=== PATIENT | female | born 1985 | race Caucasian/White ===

== ENCOUNTER 2017-09-17 13:46 | Emergency (ER) | payer SELFPAY ==
--- NOTE | 2017-09-17 16:37 | ER ---
Nurse's Notes [facility] Name: Melissa Hughes Age: 32 yrs Sex: Female : 1985 Arrival Date: 09/17/2017 Time: 13:50 Bed 12 Private MD: None, None Diagnosis: Low back pain;Strain of muscle, fascia and tendon of lower back;Unspecified lump in breast-right Presentation: 09/17 14:31 Presenting complaint: Patient states: i felt 2 knots on my R breast and it hurts and hj now my back hurts;. Transition of care: patient was not received from another setting of care. Onset of symptoms was September 17, 2017. Care prior to arrival: None. 14:31 Method Of Arrival: Ambulatory 14:31 Acuity: ABELARDO 4 hj Triage Assessment: 14:33 General: Appears in no apparent distress. uncomfortable, Behavior is calm, cooperative, hj appropriate for age. Pain: Complains of pain in right breast Pain radiates to back. Musculoskeletal: Circulation, motion, and sensation intact. Capillary refill. COMPLIANCE SPECIALIST: 14:33 LMP 09/06/2017 Historical: - Allergies: 14:33 No Known Drug Allergies; hj - Home Meds: 14:33 None [Active]; hj - PMHx: 14:33 None; hj - PSHx: 14:33 Tubal ligation; hj - Immunization history:: Pneumococcal vaccine is not up to date, Flu vaccine is not up to date. - Social history:: Smoking status: Patient uses tobacco products, smokes one-half pack cigarettes per day. Screenin:16 Abuse screen: Denies threats or abuse. Nutritional screening: No deficits noted. kb1 Tuberculosis screening: No symptoms or risk factors identified. Fall Risk None identified. Assessment: 15:16 Reassessment: Reports right flank pain that started last night. States its tender to kb1 touch. Also complains of right breast "lumps" that are painful. General: Appears in no apparent distress. Behavior is calm, cooperative. Pain: Complains of pain in right lower back side, right breast. Neuro: Level of Consciousness is awake, alert, obeys commands, Oriented to person, place, time, situation. Cardiovascular: Patient's skin is warm and dry. Respiratory: Airway is patent. GI: No signs and/or symptoms were reported involving the gastrointestinal system. : No signs and/or symptoms were reported regarding the genitourinary system. Vital Signs: 14:33 BP 119 / 72; Pulse 85; Resp 18; Temp 97.6(TE); Pulse Ox 100% on R/A; Weight 83.91 kg; hj Height 5 ft. 11 in. (180.34 cm); Pain 8/10; 14:33 Body Mass Index 25.80 (83.91 kg, 180.34 cm) ED Course: 13:50 Patient arrived in ED. mr 13:51 None, None is Private Physician. mr 14:32 Triage completed. hj 14:33 Arm band placed on right wrist. hj 15:16 Skyla Gong, RN is Primary Nurse. kb1 15:16 Patient has correct armband on for positive identification. kb1 15:16 No provider procedures requiring assistance completed. Patient did not have IV access kb1 during this emergency room visit. 15:27 Kwesi Daiz NP is PHCP. pm1 15:27 Darryn Zacarias MD is Attending Physician. pm1 Administered Medications: No medications were administered Outcome: 16:37 Discharge ordered by MD. pm1 17:15 Discharged to home ambulatory. kb1 17:15 Condition: good 17:15 Discharge instructions given to patient, Instructed on discharge instructions, follow up and referral plans. medication usage, Demonstrated understanding of instructions, follow-up care, medications. 17:15 Patient left the ED. kb1 Signatures: Savanna Kc mr BenavidesBandar RN RN Kwesi Diaz, PRISCILA DETECTIVE SUPERVISOR pm1 Skyla Gong, MICHEL RN kb1 Corrections: (The following items were deleted from the chart) 14:35 14:33 Pulse 85bpm; Resp 18bpm; Pulse Ox 100% RA; Temp 97.6F Temporal; 83.91 kg; Height hj 5 ft. 11 in.; BMI: 25.8; Pain 8/10; hj
--- NOTE | 2017-09-17 16:37 | EDPHYS ---
Physician Documentation [facility] Name: Melissa Hughes Age: 32 yrs Sex: Female : 1985 Arrival Date: 09/17/2017 Time: 13:50 Bed 12 Private MD: None, None ED Physician Darryn Zacarias HPI: 09/17 16:08 This 32 yrs old Female presents to ER via Ambulatory with complaints of Back pm1 Pain, Breast Lump. 16:08 The patient has not experienced similar symptoms in the past. The patient has not pm1 recently seen a physician, and does not have an established primary care provider. Patient presents to the ER with complaints of right breast lumps that she noticed yesterday. Patient reports feeling them at 5 and 10 o'clock. Lump at 10 o'clock painful per patient. Patient also reports that her right lower back started hurting yesterday. Patient reports history of kidney stones but thinks that she might have strained it with sleeping wrong on it last night. No nausea, vomiting, or diarrhea. No abdominal pain. No fevers. REHABILITATION COORDINATOR: 14:33 LMP 09/06/2017 hj Historical: - Allergies: 14:33 No Known Drug Allergies; hj - Home Meds: 14:33 None [Active]; hj - PMHx: 14:33 None; hj - PSHx: 14:33 Tubal ligation; hj - Immunization history:: Pneumococcal vaccine is not up to date, Flu vaccine is not up to date. - Social history:: Smoking status: Patient uses tobacco products, smokes one-half pack cigarettes per day. ROS: 16:08 Constitutional: Negative for fever, chills, and weight loss, Eyes: Negative for injury, pm1 pain, redness, and discharge, ENT: Negative for injury, pain, and discharge, Neck: Negative for injury, pain, and swelling, Cardiovascular: Negative for chest pain, palpitations, and edema. Right breast lumps Respiratory: Negative for shortness of breath, cough, wheezing, and pleuritic chest pain, Abdomen/GI: Negative for abdominal pain, nausea, vomiting, diarrhea, and constipation. 16:08 : Negative for injury, bleeding, discharge, and swelling, MS/Extremity: Negative for injury and deformity, Skin: Negative for injury, rash, and discoloration. 16:08 Back: Positive for pain with movement, flank pain, on the right, Negative for decreased range of motion, radiated pain. Exam: 16:08 Constitutional: This is a well developed, well nourished patient who is awake, alert, pm1 and in no acute distress. Head/Face: Normocephalic, atraumatic. Eyes: Pupils equal round and reactive to light, extra-ocular motions intact. Lids and lashes normal. Conjunctiva and sclera are non-icteric and not injected. Cornea within normal limits. Periorbital areas with no swelling, redness, or edema. 16:08 Cardiovascular: Regular rate and rhythm with a normal S1 and S2. No gallops, murmurs, or rubs. No pulse deficits. Respiratory: Lungs have equal breath sounds bilaterally, clear to auscultation and percussion. No rales, rhonchi or wheezes noted. No increased work of breathing, no retractions or nasal flaring. Abdomen/GI: Soft, non-tender, with normal bowel sounds. No distension or tympany. No guarding or rebound. No evidence of tenderness throughout. 16:08 Skin: Warm, dry with normal turgor. Normal color with no rashes, no lesions, and no evidence of cellulitis. MS/ Extremity: Pulses equal, no cyanosis. Neurovascular intact. Full, normal range of motion. 16:08 Chest/axilla: Inspection: normal, Palpation: is normal, Breasts: abscess, not appreciated, cellulitis, is not appreciated, mass(es), that is small, in the right breast, that is freely movable, at 5 o'clock and central, nipple discharge, is not appreciated, rash, is not appreciated, swelling, is not appreciated, tenderness, is not appreciated. 16:08 Back: ROM is normal, normal spinal alignment noted, muscle spasm, is appreciated in the right low back. 16:08 Neuro: Orientation: is normal, Mentation: is normal, Motor: is normal, moves all fours, Sensation: is normal, no obvious gross deficits, Gait: is steady, at a normal pace, without difficulty. 16:08 Chest/axilla: Guest Services Associate: Skyla PEARSON. pm1 Vital Signs: 14:33 BP 119 / 72; Pulse 85; Resp 18; Temp 97.6(TE); Pulse Ox 100% on R/A; Weight 83.91 kg; hj Height 5 ft. 11 in. (180.34 cm); Pain 8/10; 14:33 Body Mass Index 25.80 (83.91 kg, 180.34 cm) [facility]: 15:27 Patient medically screened. [facility] 16:34 Data reviewed: vital signs. Data interpreted: Pulse oximetry: on room air is 100 %. pm1 Interpretation: normal. Counseling: I had a detailed discussion with the patient and/or guardian regarding: the historical points, exam findings, and any diagnostic results supporting the discharge/admit diagnosis, the need for outpatient follow up, a family practitioner, an OB/Gyne specialist, mammogram - further evaluation of her breasts, to return to the emergency department if symptoms worsen or persist or if there are any questions or concerns that arise at home. 16:35 ED course: No blood in urine present. No need for CT scan to evaluate for stone. pm1 Informed patient of finding and decision and patient happy with plan to discharge home with pain medications. 09/17 17:00 Order name: Urine Dipstick--Ancillary (enter results) 09/17 17:00 Order name: Urine --Ancillary (enter results) ag 09/17 16:02 Order name: Urine Dipstick-Ancillary (obtain specimen); Complete Time: 17:01 pm1 09/17 16:02 Order name: Urine Test (obtain specimen); Complete Time: 17:01 pm1 Administered Medications: No medications were administered Disposition: 09/18 06:52 Co-signature as Attending Physician, Darryn Zacarias MD I agree with the assessment and [facility] plan of care. Disposition: 09/17/17 16:37 Discharged to Home. Impression: Low back pain, Strain of muscle, fascia and tendon of lower back, Unspecified lump in breast - right. - Condition is Stable. - Discharge Instructions: Back Pain, Adult, Breast Self-Awareness, Muscle Strain. - Prescriptions for Cyclobenzaprine 10 mg Oral Tablet - take 1 tablet by ORAL route every 8 hours As needed; 30 tablet. Naprosyn 500 mg Oral Tablet - take 1 tablet by ORAL route 2 times per day take with food; 30 tablet. - Medication Reconciliation Form, Thank You Letter, Antibiotic Education, Prescription Opioid Use form. - Follow up: Emergency Department; When: As needed; Reason: Worsening of condition. Follow up: Private Physician; When: 2 - 3 days; Reason: Recheck today's complaints, Continuance of care, Re-evaluation by your physician. - Problem is new. - Symptoms have improved. Signatures: Dispatcher [employer] Darryn Shaw MD MD cha Joaquin, Henry, RN RN hj Kwesi Diaz, HOTEL OR MOTEL ROOM SERVICE SUPERVISOR HOTEL OR MOTEL ROOM SERVICE SUPERVISOR pm1 Skyla Gong RN RN kb1
[2017-09-17 18:00] LABS: Urine Blood NEGATIVE (NEG); Urine Glucose NEGATIVE (NEG); Urine Protein NEGATIVE (NEG); Urine Specific Gravity 1.015 (1.005-1.030); Urine pH 7.5 (5.0-7.0)
== END 2017-09-17 17:15 | disposition home or self-care (01) ==
LOC: ER 13:46
DX: S39.012A Strain of muscle, fascia and tendon of lower back, initial encounter (principal); N63.0 Unspecified lump in unspecified breast; F17.210 Nicotine dependence, cigarettes, uncomplicated
CPT/HCPCS: 81003; 81025; 99281

== ENCOUNTER 2017-09-29 | Emergency (ER) | payer SELFPAY ==
--- NOTE | 2017-09-29 10:52 | EDPHYS ---
Physician Documentation [facility] Name: Melissa Hughes Age: 32 yrs Sex: Female : 1985 Arrival Date: 09/29/2017 Time: 09:00 Bed 20 Private MD: ED Physician Vinay Krishnan HPI: 09/29 10:04 This 32 yrs old Female presents to ER via Ambulatory with complaints of Leg kav Pain - Rash. 10:44 The patient presents with a rash, raised, central black area. The complaints affect the.kav 10:45 The complaints affect the right femoral area, right inguinal area and right hip. kav Context: The problem was sustained at home, resulted from an unknown cause, the patient can fully bear weight, the patient is able to ambulate, without difficulty. Onset: The symptoms/episode began/occurred acutely, 5 day(s) ago. Modifying factors: The symptoms are alleviated by nothing. the symptoms are aggravated by scratching. 10:46 The patient's rash thought to be caused by an unknown cause. The rash is located on the kav right femoral area, right inguinal area and right hip. The rash can be described as erythematous, vesicular. Associated signs and symptoms: Pertinent positives: itching, Pertinent negatives: burning sensation. Severity of symptoms: At their worst the symptoms were mild just prior to arrival, in the emergency department the symptoms are unchanged. Treatment given at home: Benadryl, OTC lotion/cream steroid lotion/cream. The patient has not experienced similar symptoms in the past. The patient has not recently seen a physician. CDC ASSOCIATE: 10:57 LMP N/A - control method hj Historical: - Allergies: 09:29 No Known Allergies; ss - Home Meds: 09:29 naproxen [Active]; Flexeril Oral [Active]; ss - PMHx: 09:29 None; ss - PSHx: 09:29 Tubal ligation; ss - Immunization history:: Adult Immunizations up to date. - Social history:: Smoking status: Patient uses tobacco products, smokes one-half pack cigarettes per day. - Family history:: not pertinent, not pertinent. - Hospitalizations: : No recent hospitalization is reported. - History obtained from: significant other. ROS: 10:47 Constitutional: Negative for fever, chills, and weight loss, Eyes: Negative for injury, kav pain, redness, and discharge, ENT: Negative for injury, pain, and discharge, Neck: Negative for injury, pain, and swelling, Cardiovascular: Negative for chest pain, palpitations, and edema, Respiratory: Negative for shortness of breath, cough, wheezing, and pleuritic chest pain, Abdomen/GI: Negative for abdominal pain, nausea, vomiting, diarrhea, and constipation, Back: Negative for injury and pain, : Negative for injury, bleeding, discharge, and swelling, MS/Extremity: Negative for injury and deformity, Neuro: Negative for headache, weakness, numbness, tingling, and seizure, Psych: Negative for depression, anxiety, suicide ideation, homicidal ideation, and hallucinations, Allergy/Immunology: Negative for hives, rash, and allergies, Endocrine: Negative for neck swelling, polydipsia, polyuria, polyphagia, and marked weight changes, Hematologic/Lymphatic: Negative for swollen nodes, abnormal bleeding, and unusual bruising. 10:47 Skin: Positive for erythema, rash. Exam: 10:47 Constitutional: This is a well developed, well nourished patient who is awake, alert, kav and in no acute distress. Head/Face: Normocephalic, atraumatic. Eyes: Pupils equal round and reactive to light, extra-ocular motions intact. Lids and lashes normal. Conjunctiva and sclera are non-icteric and not injected. Cornea within normal limits. Periorbital areas with no swelling, redness, or edema. ENT: Nares patent. No nasal discharge, no septal abnormalities noted. Tympanic membranes are normal and external auditory canals are clear. Oropharynx with no redness, swelling, or masses, exudates, or evidence of obstruction, uvula midline. Mucous membranes moist. Neck: Trachea midline, no thyromegaly or masses palpated, and no cervical lymphadenopathy. Supple, full range of motion without nuchal rigidity, or vertebral point tenderness. No Meningismus. Chest/axilla: Normal chest wall appearance and motion. Nontender with no deformity. No lesions are appreciated. Cardiovascular: Regular rate and rhythm with a normal S1 and S2. No gallops, murmurs, or rubs. Normal PMI, no JVD. No pulse deficits. Respiratory: Lungs have equal breath sounds bilaterally, clear to auscultation and percussion. No rales, rhonchi or wheezes noted. No increased work of breathing, no retractions or nasal flaring. Abdomen/GI: Soft, non-tender, with normal bowel sounds. No distension or tympany. No guarding or rebound. No evidence of tenderness throughout. Back: No spinal tenderness. No costovertebral tenderness. Full range of motion. Pelvic Exam: Normal external genitalia. Speculum exam with closed cervical os, no discharge or bleeding noted. Bimanual exam with normal adnexa, no adnexal or cervical motion tenderness. Normal uterus. MS/ Extremity: Pulses equal, no cyanosis. Neurovascular intact. Full, normal range of motion. Neuro: Awake and alert, GCS 15, oriented to person, place, time, and situation. Cranial nerves II-XII grossly intact. Motor strength 5/5 in all extremities. Sensory grossly intact. Cerebellar exam normal. Normal gait. Psych: Awake, alert, with orientation to person, place and time. Behavior, mood, and affect are within normal limits. 10:47 Skin: lesion(s), located on the right femoral area, right inguinal area and right hip, rash a mild rash is noted, rash can be described as erythematous, vesicular. Vital Signs: 09:29 BP 134 / 75; Pulse 89; Resp 16; Temp 97.7(TE); Pulse Ox 99% on R/A; Weight 129.27 kg; ss Height 5 ft. 11 in. (180.34 cm); Pain 10/10; 09:29 Body Mass Index 39.75 (129.27 kg, 180.34 cm) MDM: 10:04 Patient medically screened. ka 10:47 Data reviewed: vital signs, nurses notes. kav Administered Medications: No medications were administered Disposition: 18:38 Co-signature as Attending Physician, Vinay Krishnan MD. rn Disposition: 09/29/17 10:51 Discharged to Home. Impression: Rash and other nonspecific skin eruption, Zoster without complications. - Condition is Stable. - Discharge Instructions: Rash, Shingles. - Prescriptions for Ultracet 37.5- 325 mg Oral Tablet - take 1 tablet by ORAL route every 6 hours - for up to 5 days; do not exceed 8 tablets per day.; 15 tablet. Acyclovir 800 mg Oral Tablet - take 1 tablet by ORAL route 4 times per day for 5 days; 20 tablet. - Medication Reconciliation Form, Thank You Letter, Antibiotic Education, Prescription Opioid Use form. - Follow up: Private Physician; When: 5 - 6 days; Reason: If symptoms return, Recheck today's complaints, Continuance of care, Re-evaluation by your physician. - Problem is new. - Symptoms are unchanged. Signatures: Lupis Hollins, Vinay Hernandez MD MD rn [facility] salgado RN RN
--- NOTE | 2017-09-29 10:52 | ER ---
Nurse's Notes [facility] Name: Melissa Hughes Age: 32 yrs Sex: Female : 1985 Arrival Date: 09/29/2017 Time: 09:00 Bed 20 Private MD: Diagnosis: Rash and other nonspecific skin eruption;Zoster without complications Presentation: 09/29 09:27 Presenting complaint: Patient states: rash to R thigh that began a week ago. Transition ss of care: patient was not received from another setting of care. Onset of symptoms was September 22, 2017. Care prior to arrival: None. 09:27 Method Of Arrival: Ambulatory ss 09:27 Acuity: ABELARDO 5 ss Triage Assessment: 10:05 General: Appears in no apparent distress. uncomfortable, Behavior is calm, cooperative, hj appropriate for age. Pain: Complains of pain in right quadriceps. EENT: No signs and/or symptoms were reported regarding the EENT system. Neuro: Level of Consciousness is awake, alert, obeys commands, Oriented to person, place, time, situation, Appropriate for age. Cardiovascular: Capillary refill < 3 seconds Patient's skin is warm and dry. Respiratory: Airway is patent Trachea midline Respiratory effort is even, unlabored, Respiratory pattern is regular, symmetrical. GI: No signs and/or symptoms were reported involving the gastrointestinal system. : No signs and/or symptoms were reported regarding the genitourinary system. Derm: Reports pain rash on R thigh. Musculoskeletal: Reports pain in right quadriceps. PACK PRESS OPERATOR: 10:57 LMP N/A - control method hj Historical: - Allergies: 09:29 No Known Allergies; ss - Home Meds: 09: naproxen [Active]; Flexeril Oral [Active]; ss - PMHx: : None; ss - PSHx: 09:29 Tubal ligation; ss - Immunization history:: Adult Immunizations up to date. - Social history:: Smoking status: Patient uses tobacco products, smokes one-half pack cigarettes per day. - Family history:: not pertinent, not pertinent. - Hospitalizations: : No recent hospitalization is reported. - History obtained from: significant other. Screenin:04 Abuse screen: Denies threats or abuse. Denies injuries from another. Nutritional hj screening: No deficits noted. Tuberculosis screening: No symptoms or risk factors identified. Fall Risk None identified. Assessment: 10:16 Reassessment: see triage for assessment;. hj Vital Signs: 09:29 BP 134 / 75; Pulse 89; Resp 16; Temp 97.7(TE); Pulse Ox 99% on R/A; Weight 129.27 kg; Height 5 ft. 11 in. (180.34 cm); Pain 10/10; 09:29 Body Mass Index 39.75 (129.27 kg, 180.34 cm) ED Course: 09:00 Patient arrived in ED. as 09:28 Triage completed. 09:29 Arm band placed on right wrist. 10:04 Bandar Benavides, RN is Primary Nurse. 10:04 Lupis Hollins FNP is PHCP. kav 10:06 Patient has correct armband on for positive identification. Bed in low position. Call hj light in reach. Side rails up X 1. Adult w/ patient. 10:51 Vinay Krishnan MD is Attending Physician. kav 10:56 No provider procedures requiring assistance completed. Patient did not have IV access hj during this emergency room visit. Administered Medications: No medications were administered Outcome: 10:51 Discharge ordered by . kav 10:56 Discharged to home ambulatory, with family. hj 10:56 Condition: stable 10:56 Discharge instructions given to patient, family, Instructed on discharge instructions, follow up and referral plans. medication usage, Demonstrated understanding of instructions, follow-up care, medications, Prescriptions given X 3. 10:58 Patient left the ED. Signatures: Lupis Hollins FNP FNP kav Martinez, Amelia as Smirch, Shelby, RN RN Bandar Benavides, MICHEL PEARSON
== END 2017-09-29 10:58 | disposition home or self-care (01) ==
CPT/HCPCS: 99282

== ENCOUNTER 2019-04-19 11:44 | Emergency (ER) | payer SELFPAY ==
[2019-04-19] MEDS ORDERED: MORPHINE 4 MG/ML SYR ONE (12:06)
[2019-04-19] MEDS ORDERED: ONDANSETRON 4 MG/2 ML VIAL ONE (12:06)
--- NOTE | 2019-04-19 13:14 | ER ---
Nurse's Notes [facility] Name: Melissa Hughes Age: 33 yrs Sex: Female : 1985 Arrival Date: 04/19/2019 Time: 11:44 Bed 5 Private MD: None, None Diagnosis: Displaced fracture of right distal radius;Displaced fracture of right distal ulna Presentation: 04/19 11:47 Presenting complaint: Patient states: tripped and fell today and tried to catch herself sv with her right hand, c/o right wrist pain. Care prior to arrival: None. Mechanism of Injury: Fall from standing position. Trauma event details: Injury occurred in the [facility], Injury occurred: at home. Injury occurred: April 19, 2019. 11:47 Acuity: ABELARDO 3 sv 11:47 Method Of Arrival: Ambulatory sv 13:52 Transition of care: patient was not received from another setting of care. Onset of bp symptoms is unknown. Risk Assessment: Do you want to hurt yourself or someone else? Patient reports no desire to harm self or others. Initial Sepsis Screen: Does the patient meet any 2 criteria? No. Patient's initial sepsis screen is negative. Does the patient have a suspected source of infection? No. Patient's initial sepsis screen is negative. Triage Assessment: 12:00 General: Appears in no apparent distress. uncomfortable, Behavior is cooperative, bp appropriate for age, anxious. Pain: Complains of pain in right wrist. EENT: No deficits noted. Neuro: No deficits noted. Cardiovascular: No deficits noted. Respiratory: No deficits noted. GI: No signs and/or symptoms were reported involving the gastrointestinal system. : No signs and/or symptoms were reported regarding the genitourinary system. Derm: No deficits noted. Musculoskeletal: Bony deformity noted of right wrist. 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 - Social history:: Smoking status: Patient uses tobacco products, unknown amount. - Ebola Screening: : No symptoms or risks identified at this time. Screenin:10 Abuse screen: Denies threats or abuse. Denies injuries from another. Nutritional bp screening: No deficits noted. Tuberculosis screening: No symptoms or risk factors identified. Fall Risk None identified. Assessment: 12:00 General: SEE TRIAGE NOTE. bp 13:51 Reassessment: PT D/C HOME AMBULATORY WITH FAMILY, DX WITH DISPLACED DISTAL RADIUS AND bp ULNAR FX. Vital Signs: 11:48 BP 129 / 75; Pulse 75; Resp 22; Temp 97.5(O); Pulse Ox 100% ; Weight 79.38 kg; Height 5 sv ft. 9 in. (175.26 cm); 13:51 BP 131 / 72; Pulse 81; Resp 20; Temp 97.5; Pulse Ox 100% ; bp 11:48 Body Mass Index 25.84 (79.38 kg, 175.26 cm) sv ED Course: 11:44 Patient arrived in ED. ag5 11:46 None, None is Private Physician. ag5 11:48 Triage completed. sv 11:51 Arm band placed on. sv 11:53 Varsha Conway FNP-C is [facility]. kb 11:54 Vinay Krishnan MD is Attending Physician. kb 12:00 Ramsey Briggs, MICHEL is Primary Nurse. bp 12:09 Inserted saline lock: 22 gauge in left antecubital area, using aseptic technique. bp 12:10 Patient has correct armband on for positive identification. Bed in low position. Call bp light in reach. Side rails up X2. Adult w/ patient. 13:00 Forearm Right XRAY In Process Unspecified. EDMS 13:00 Wrist Right 3 View XRAY In Process Unspecified. EDMS 13:20 Orthoglass splint: Sugar tong splint applied on right arm. Radial pulse present and jb1 within normal limits before and after application of splint. Capillary refill was one second before and after application of splint. Sling applied to right arm. 13:52 No provider procedures requiring assistance completed. IV discontinued, intact, bp bleeding controlled, No redness/swelling at site. Pressure dressing applied. Administered Medications: 12:09 Drug: morphine 4 mg Route: IVP; Site: left antecubital; bp 13:32 Follow up: Response: No adverse reaction; Pain is decreased bp 12:09 Drug: Zofran 4 mg Route: IVP; Site: left antecubital; bp 13:33 Follow up: Response: Nausea is decreased bp 13:20 Drug: Pearcy 10 mg-325 mg 1 tabs Route: PO; bp 13:53 Follow up: Response: No adverse reaction; Pain is decreased bp Outcome: 13:14 Discharge ordered by . kb 13:51 Discharged to home ambulatory, with family. bp 13:51 Condition: stable 13:51 Discharge instructions given to patient, Instructed on discharge instructions, follow up and referral plans. medication usage, Demonstrated understanding of instructions, follow-up care, medications, splint care, Prescriptions given X 2. 13:53 Patient left the ED. bp Signatures: Dispatcher [employer] EDMS Kedar Williamson jb1 Varsha Conway, ELISSA-C POLICY ADVISER-Michelle De La O, MICHEL RN Ramsey Callejas RN RN Jyoti Mast ag5 Corrections: (The following items were deleted from the chart) 11:51 11:48 79.38 kg; Height 5 ft. 9 in.; BMI: 25.8; [facility]
--- NOTE | 2019-04-19 13:15 | EDPHYS ---
Physician Documentation [facility] Name: Melissa Hughes Age: 33 yrs Sex: Female : 1985 Arrival Date: 04/19/2019 Time: 11:44 Bed 5 Private MD: None, None ED Physician Vinay Krishnan HPI: 04/19 12:01 This 33 yrs old Female presents to ER via Ambulatory with complaints of Fall kb Injury, Wrist Injury. 12:01 The patient or guardian reports decreased range of motion, deformity, pain, swelling, kb tenderness. The complaints affect the right wrist diffusely. Context: The problem was sustained at home, resulted from a fall, while walking, on an outstretched hand. Onset: The symptoms/episode began/occurred just prior to arrival. Modifying factors: The symptoms are alleviated by nothing, the symptoms are aggravated by movement. Associated signs and symptoms: The patient has no apparent associated signs or symptoms. The patient has not experienced similar symptoms in the past. The patient has not recently seen a physician. 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 - Social history:: Smoking status: Patient uses tobacco products, unknown amount. - Ebola Screening: : No symptoms or risks identified at this time. ROS: 12:01 Constitutional: Negative for fever, chills, and weight loss, Cardiovascular: Negative kb for chest pain, palpitations, and edema, Respiratory: Negative for shortness of breath, cough, wheezing, and pleuritic chest pain, Abdomen/GI: Negative for abdominal pain, nausea, vomiting, diarrhea, and constipation, Back: Negative for injury and pain, Skin: Negative for injury, rash, and discoloration, Neuro: Negative for headache, weakness, numbness, tingling, and seizure. 12:01 MS/extremity: Positive for injury or acute deformity, decreased range of motion, pain, swelling, tenderness, of the right wrist. Exam: 12:01 Hand exam: Exam is positive for decreased range of motion, deformity, pain, swelling, kb tenderness, ROM: limited active range of motion due to pain, limited passive range of motion due to pain, Circulation is intact in all extremities. sensation intact. 12:01 Constitutional: This is a well developed, well nourished patient who is awake, alert, and in no acute distress. Head/Face: Normocephalic, atraumatic. Neck: Trachea midline, no thyromegaly or masses palpated, and no cervical lymphadenopathy. Supple, full range of motion without nuchal rigidity, or vertebral point tenderness. No Meningismus. Chest/axilla: Normal chest wall appearance and motion. Nontender with no deformity. No lesions are appreciated. Cardiovascular: Regular rate and rhythm with a normal S1 and S2. No gallops, murmurs, or rubs. Normal PMI, no JVD. No pulse deficits. Respiratory: Lungs have equal breath sounds bilaterally, clear to auscultation and percussion. No rales, rhonchi or wheezes noted. No increased work of breathing, no retractions or nasal flaring. Abdomen/GI: Soft, non-tender, with normal bowel sounds. No distension or tympany. No guarding or rebound. No evidence of tenderness throughout. Skin: Warm, dry with normal turgor. Normal color with no rashes, no lesions, and no evidence of cellulitis. Neuro: Awake and alert, GCS 15, oriented to person, place, time, and situation. Cranial nerves II-XII grossly intact. Motor strength 5/5 in all extremities. Sensory grossly intact. Cerebellar exam normal. Normal gait. Vital Signs: 11:48 BP 129 / 75; Pulse 75; Resp 22; Temp 97.5(O); Pulse Ox 100% ; Weight 79.38 kg; Height 5 sv ft. 9 in. (175.26 cm); 13:51 BP 131 / 72; Pulse 81; Resp 20; Temp 97.5; Pulse Ox 100% ; bp 11:48 Body Mass Index 25.84 (79.38 kg, 175.26 cm) sv MDM: 11:55 Patient medically screened. kb 12:03 Data reviewed: vital signs, nurses notes. Data interpreted: Pulse oximetry: on room air kb is 100 %. Interpretation: normal. 13:07 Counseling: I had a detailed discussion with the patient and/or guardian regarding: the kb historical points, exam findings, and any diagnostic results supporting the discharge/admit diagnosis, radiology results, the need for outpatient follow up, a orthopedic surgeon, to return to the emergency department if symptoms worsen or persist or if there are any questions or concerns that arise at home. 13:48 Test interpretation: by ED physician or midlevel provider: plain radiologic studies, kb displaced fracture of distal radius and ulna . 04/19 11:52 Order name: Forearm Right XRAY; Complete Time: 13:48 kb 04/19 11:57 Order name: Wrist Right 3 View XRAY; Complete Time: 13:48 kb 04/19 11:57 Order name: IV Start; Complete Time: 12:08 kb 04/19 11:58 Order name: Ice pack; Complete Time: 12:10 kb 04/19 13:02 Order name: Sugar Tong Forearm Splint; Complete Time: 13:22 kb 04/19 13:02 Order name: Sling; Complete Time: 13:22 kb Administered Medications: 12:09 Drug: morphine 4 mg Route: IVP; Site: left antecubital; bp 13:32 Follow up: Response: No adverse reaction; Pain is decreased bp 12:09 Drug: Zofran 4 mg Route: IVP; Site: left antecubital; bp 13:33 Follow up: Response: Nausea is decreased bp 13:20 Drug: Troy 10 mg-325 mg 1 tabs Route: PO; bp 13:53 Follow up: Response: No adverse reaction; Pain is decreased bp Disposition: 14:02 Co-signature as Attending Physician, Vinay Krishnan MD. rn Disposition: 04/19/19 13:14 Discharged to Home. Impression: Displaced fracture of right distal radius, Displaced fracture of right distal ulna. - Condition is Stable. - Discharge Instructions: Forearm Fracture, Kesx-qg-Mdar, Cast or Splint Care, [id number]. - Prescriptions for Ibuprofen 800 mg Oral Tablet - take 1 tablet by ORAL route every 8 hours As needed take with food; 30 tablet. Tylenol- Codeine #3 300-30 mg Oral Tablet - take 2 tablets by ORAL route every 6 hours As needed; 16 tablet. - Medication Reconciliation Form, Thank You Letter, Antibiotic Education, Prescription Opioid Use form. - Follow up: Private Physician; When: 2 - 3 days; Reason: Recheck today's complaints, Continuance of care, Re-evaluation by your physician. Follow up: Emergency Department; When: As needed; Reason: Worsening of condition. Signatures: Dispatcher [employer] EDMS Varsha Conway, DATA COMMUNICATIONS TECHNICIAN-C DATA COMMUNICATIONS TECHNICIAN-Ckb Michelle Mathews, RN RN Vinay Gilliam MD MD rn Peltier, Brian, RN RN bp Corrections: (The following items were deleted from the chart) 13:53 13:14 04/19/2019 13:14 Discharged to Home. Impression: Displaced fracture of right bp distal radius; Displaced fracture of right distal ulna. Condition is Stable. Forms are Medication Reconciliation Form, Thank You Letter, Antibiotic Education, Prescription Opioid Use. Follow up: Private Physician; When: 2 - 3 days; Reason: Recheck today's complaints, Continuance of care, Re-evaluation by your physician. Follow up: Emergency Department; When: As needed; Reason: Worsening of condition. kb
[2019-04-19] MEDS ORDERED: HYDROCODONE/APAP 10/325 TAB ONE (13:23)
--- NOTE | 2019-04-19 13:44 | RAD REPORT ---
EXAM DESCRIPTION: RAD - Forearm Right - 04/19/2019 1:00 pm CLINICAL HISTORY: Right arm pain status post fall FINDINGS: Impacted, comminuted mildly displaced fracture involves the distal radius. Avulsion fracture ulnar styloid process No dislocation
--- NOTE | 2019-04-19 13:45 | RAD REPORT ---
EXAM DESCRIPTION: RAD - Wrist Right 3 View - 04/19/2019 1:00 pm CLINICAL HISTORY: Right wrist pain status post injury FINDINGS: Impacted, comminuted mildly displaced fracture involves the distal radius. Avulsion fracture ulnar styloid process No dislocation
[2019-04-19 14:02] VITALS: TEMP 97.5; O2SAT 100
[2019-04-19 14:03] VITALS: BP 131/72
== END 2019-04-19 13:53 | disposition home or self-care (01) ==
LOC: ER 11:44
PROC: 0PSHXZZ Reposition Right Radius, External Approach (ICD-10-PCS; principal; 2019-04-19)
PROC: 0PSKXZZ Reposition Right Ulna, External Approach (ICD-10-PCS; 2019-04-19)
DX: S52.501A Unspecified fracture of the lower end of right radius, initial encounter for closed fracture (principal); S52.601A Unspecified fracture of lower end of right ulna, initial encounter for closed fracture; W01.0XXA Fall on same level from slipping, tripping and stumbling without subsequent striking against object, initial encounter; Y93.9 Activity, unspecified; Y92.9 Unspecified place or not applicable; Z72.0 Tobacco use
CPT/HCPCS: 96374; 96375; 99284; J2405

== ENCOUNTER 2019-09-18 13:53 | Emergency (ER) | payer SELFPAY ==
--- OUTSIDE RECORDS SUMMARY | 2019-09-18 13:56 | XMS REPORT ---
:1985 [facility] Address [address] [place] [address] [address] [place] [address] Care Team Providers Name Role Phone Unavailable Unavailable Unavailable Problems This patient has no known problems. Allergies, Adverse Reactions, Alerts This patient has no known allergies or adverse reactions. Medications This patient has no known medications.
--- NOTE | 2019-09-18 15:07 | RAD REPORT ---
EXAM DESCRIPTION: CT - Stone Protocol - 09/18/2019 2:51 pm CLINICAL HISTORY: Flank pain. FLANK PAIN COMPARISON: CT-STONE PROTOCOL dated 10/05/2008 TECHNIQUE: Axial images were obtained without oral or IV contrast. Lack of contrast limits solid org an and vascular assessment. The [id number] spans the entirety of the system partially obscuring uppermost abdomen and lung bases. Coronal reformatted images were obtained and reviewed. All CT scans are performed using dose optimization technique as appropriate and may include automated exposure control or mA/KV adjustment according to patient size. FINDINGS: The lower lung horn are clear. Imaged portions of the liver and spleen show no suspicious findings on non-contrast imaging. The panc reas and adrenal glands are normal. No pathologic lymphadenopathy in the abdomen or pelvis. Multiple caliceal calculi are present in both kidneys, largely punctate. Left-sided hydronephrosis an d hydroureter is present. There is no obstructing stones identified. No bowel obstruction, free air, free fluid or abscess. Normal appendix noted. No significant bony abnormality. IMPRESSION: Mild left-sided hydronephrosis and hydroureter is seen without radiopaque obstructing ca lculus identified. Recent passage of a stone is a possibility. Punctate bilateral nephrolithiasis.
[2019-09-18] MEDS ORDERED: MORPHINE 2 MG/ML SYR ONE (15:12)
[2019-09-18] MEDS ORDERED: ONDANSETRON 4 MG/2 ML VIAL ONE (15:12)
[2019-09-18 15:28] LABS: Urine Blood 2+ (NEG); Urine Glucose NEGATIVE (NEG); Urine Protein NEGATIVE (NEG)
[2019-09-18 15:29] LABS: Absolute Lymphocytes (CBC) 2.1 K/uL (0.7-4.9); Basophils % 0.6 % (0-1.3); Hematocrit 40.4 % (36.0-45.0); Lymphocytes % 21.4 % (15.3-44.8); MPV 9.3 fL (7.6-11.3); RBC Red Blood Cell Count 4.52 M/uL (3.86-4.86)
[2019-09-18 15:30] LABS: Urine Bacteria <20 /HPF (<20); Urine RBC >50 /HPF (NONE SEEN)
[2019-09-18 15:31] LABS: Urine Culture Reflex Order NOT NEEDED; Urine Mucus 3+ /HPF (NONE SEEN)
[2019-09-18 15:52] LABS: ALT/SGPT 19 U/L (12-78); AST/SGOT 13 U/L (15-37); Alkaline Phosphatase 59 U/L (45-117); BUN Blood Urea Nitrogen 17 mg/dL (7-18); Bicarbonate 28 mmol/L (21-32); Bilirubin Direct < 0.1 mg/dL (0-0.2); Bilirubin Total 0.2 mg/dL (0.2-1.0); Glucose Level 84 mg/dL (74-106); Lipase 80 U/L (73-393); Potassium 3.7 mmol/L (3.5-5.1); Protein, Total 7.7 g/dL (6.4-8.2); Sodium Level 138 mmol/L (136-145)
--- NOTE | 2019-09-18 17:27 | EDPHYS ---
Physician Documentation [facility] Name: Melissa Hughes Age: 34 yrs Sex: Female : 1985 Arrival Date: 09/18/2019 Time: 13:57 Bed 24 Private MD: ED Physician Nirmal Fatima HPI: 09/17 14:30 This 34 yrs old Female presents to ER via Ambulatory with complaints of Pain cp With Urination, Blood In Urine. 14:30 The patient complains of pain in the left flank. The pain radiates to the abdomen. cp 14:30 Onset: The symptoms/episode began/occurred this morning. Associated signs and symptoms: cp Pertinent positives: dysuria, hematuria, nausea, Pertinent negatives: diarrhea, fever, pain radiating to the lower extremities, vomiting. Severity of pain: in the emergency department the pain is unchanged despite home interventions. The patient has experienced similar episodes in the past, several times, today's symptoms are similar, to when the patient was apparently diagnosed with kidney stone. 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 - Social history:: Smoking status: Patient reports the use of cigarette tobacco products, smokes one-half pack cigarettes per day. ROS: 14:35 Constitutional: Negative for body aches, chills, fever, poor PO intake. cp 14:35 Eyes: Negative for injury, pain, redness, and discharge. cp 14:35 ENT: Negative for drainage from ear(s), ear pain, sore throat, difficulty swallowing, difficulty handling secretions. 14:35 Cardiovascular: Negative for chest pain, palpitations. 14:35 Respiratory: Negative for cough, shortness of breath, wheezing. 14:35 Abdomen/GI: Positive for abdominal pain, nausea, Negative for vomiting, diarrhea, constipation. 14:35 Back: Positive for flank pain, on the left. 14:35 : Positive for urinary symptoms, hematuria, Negative for vaginal bleeding, vaginal discharge. 14:35 Skin: Negative for rash. 14:35 Neuro: Negative for altered mental status, headache, weakness. 14:35 All other systems are negative. Exam: 14:45 Constitutional: The patient appears in no acute distress, alert, awake, non-toxic, well cp developed, well nourished. 14:45 Head/Face: Normocephalic, atraumatic. cp 14:45 Eyes: Periorbital structures: appear normal, Conjunctiva: normal, no exudate, no injection, Sclera: no appreciated abnormality, Lids and lashes: appear normal, bilaterally. 14:45 ENT: External ear(s): are unremarkable, Nose: is normal, Mouth: is normal, Posterior pharynx: is normal, airway is patent, no erythema, no exudate. 14:45 Chest/axilla: Inspection: normal, Palpation: is normal, no crepitus, no tenderness. 14:45 Cardiovascular: Rate: normal, Rhythm: regular. 14:45 Respiratory: the patient does not display signs of respiratory distress, Respirations: normal, no use of accessory muscles, no retractions, labored breathing, is not present, Breath sounds: are clear throughout, no decreased breath sounds, no stridor, no wheezing. 14:45 Abdomen/GI: Inspection: abdomen appears normal, Bowel sounds: active, all quadrants, Palpation: soft, in all quadrants, mild abdominal tenderness, in the anterior aspect of left lateral abdomen, left upper quadrant and left lower quadrant, rebound tenderness, is not appreciated, voluntary guarding, is not appreciated, involuntary guarding, is not appreciated. 14:45 Skin: no rash present. Vital Signs: 14:09 BP 144 / 91; Pulse 93; Resp 17; Temp 97.2(TE); Pulse Ox 100% on R/A; Weight 81.65 kg ca1 (R); Height 5 ft. 9 in. (175.26 cm) (R); Pain 10/10; 15:55 BP 136 / 91; Pulse 75; Resp 15; Temp 97.8(O); Pulse Ox 99% on R/A; mh5 16:59 BP 125 / 84; Pulse 65; Resp 16; Pulse Ox 100% on R/A; mh5 17:45 BP 131 / 92; Pulse 67; Resp 15; Pulse Ox 100% ; rb1 14:09 Body Mass Index 26.58 (81.65 kg, 175.26 cm) ca1 MDM: 14:17 Patient medically screened. cp 14:35 Differential diagnosis: nephrolithiasis, pyelonephritis, UTI, pancreatitis, cp cholecystitis. 15:39 ED course: [place] prescription monitoring program website reports narcotic score of 180 cp and sedative score of 90. 17:25 Data reviewed: vital signs, nurses notes, lab test result(s), radiologic studies, CT cp scan. 17:25 Counseling: I had a detailed discussion with the patient and/or guardian regarding: the cp historical points, exam findings, and any diagnostic results supporting the discharge/admit diagnosis, lab results, radiology results, to return to the emergency department if symptoms worsen or persist or if there are any questions or concerns that arise at home. Response to treatment: the patient's symptoms have markedly improved after treatment, and as a result, I will discharge patient. Special discussion: Based on the patient's Hx, exam, and Dx evaluation, there is no indication for emergent surgery or inpatient Tx. It is understood by the patient/guardian that if the Sx's persist or worsen they need to return immediately for re-evaluation. 09/17 14:16 Order name: Urine Microscopic Only; Complete Time: 15:33 cp 09/17 15:33 Interpretation: Normal except: URBC >50; MUCUS 3+. cp 09/17 14:26 Order name: Basic Metabolic Panel; Complete Time: 17:13 cp 09/17 17:13 Interpretation: Normal except: GFR 65. cp 09/17 14:26 Order name: CBC with Diff; Complete Time: 15:33 cp 09/17 15:34 Interpretation: Reviewed. 09/17 14:26 Order name: Hepatic Function; Complete Time: 17:13 cp 09/17 17:13 Interpretation: Normal except: AST 13; GLOB 3.7. cp 09/17 14:26 Order name: Lipase; Complete Time: 17:13 cp 09/17 14:16 Order name: Urine Dipstick-Ancillary (obtain specimen); Complete Time: 14:24 cp 09/17 14:16 Order name: Urine Test (obtain specimen); Complete Time: 14:24 cp 09/17 14:26 Order name: IV Saline Lock; Complete Time: 15:22 cp 09/17 14:27 Order name: Urine Dipstick--Ancillary (enter results); Complete Time: 15:33 eb 09/17 15:33 Interpretation: Normal except: UBLD 2+. cp 09/17 14:27 Order name: Urine --Ancillary (enter results); Complete Time: 15:33 eb 09/17 14:34 Order name: CT Stone Protocol; Complete Time: 15:33 cp 09/17 14:26 Order name: Labs collected and sent; Complete Time: 15:22 cp Administered Medications: 15:10 Drug: Zofran (Ondansetron) 4 mg Route: IVP; Site: right antecubital; rb1 15:25 Follow up: Response: No adverse reaction rb1 15:10 Drug: morphine 2 mg Route: IVP; Site: right antecubital; rb1 15:25 Follow up: Response: No adverse reaction; Pain is decreased rb1 Disposition: 09/18 07:07 Co-signature as Attending Physician, Nirmla Fatima MD I agree with the assessment and kdr plan of care. Disposition: 09/18/19 17:26 Discharged to Home. Impression: Calculus of kidney - bilateral, Lower abdominal pain, unspecified - left. - Condition is Stable. - Discharge Instructions: Abdominal Pain, Adult, Flank Pain, Adult, Kidney Stones. - Prescriptions for Zofran 4 mg Oral Tablet - take 1 tablet by ORAL route every 12 hours As needed; 20 tablet. Tramadol 50 mg Oral Tablet - take 1 tablet by ORAL route every 8 hours as needed; 15 tablet. Bactrim DS 800- 160 mg Oral Tablet - take 1 tablet by ORAL route every 12 hours for 7 days; 14 tablet. - Medication Reconciliation Form, Thank You Letter, Antibiotic Education, Prescription Opioid Use form. - Follow up: Lizbeth Tavarez MD; When: 2 - 3 days; Reason: pain continues. - Problem is new. - Symptoms have improved. Signatures: Dispatcher [employer] EDNirmal Zuniga MD MD kdr Page, Corey, PA PA cp Barber, Rebecca RN RN rb1 Kianna Tapia RN RN ca1 Corrections: (The following items were deleted from the chart) 09/17 17:51 17:26 09/18/2019 17:26 Discharged to Home. Impression: Calculus of kidney - bilateral; rb1 Lower abdominal pain, unspecified - left. Condition is Stable. Forms are Medication Reconciliation Form, Thank You Letter, Antibiotic Education, Prescription Opioid Use. Follow up: Lizbeth Tavarez; When: 2 - 3 days; Reason: pain continues. Problem is new. Symptoms have improved. cp
--- NOTE | 2019-09-18 17:27 | ER ---
Nurse's Notes [facility] Name: Melissa Hughes Age: 34 yrs Sex: Female : 1985 Arrival Date: 09/18/2019 Time: 13:57 Bed 24 Private MD: Diagnosis: Calculus of kidney-bilateral;Lower abdominal pain, unspecified-left Presentation: 09/17 14:09 Chief complaint: Patient states: "woke up peeing blood today". Reports pain on L lower ca1 back and L lower abdomen, pain with urination, nausea. Reports hx of Kidney stones. Coronavirus screen: Patient denies fever greater than 100.4F, cough, shortness of breath, or difficulty breathing. Proceed with normal triage process. Ebola Screen: Patient negative for fever greater than or equal to 101.5 degrees Fahrenheit, and additional compatible Ebola Virus Disease symptoms Patient denies exposure to infectious person. Patient denies travel to an Ebola-affected area in the 21 days before illness onset. No symptoms or risks identified at this time. Initial Sepsis Screen: Does the patient meet any 2 criteria? No. Patient's initial sepsis screen is negative. Does the patient have a suspected source of infection? No. Patient's initial sepsis screen is negative. Risk Assessment: Do you want to hurt yourself or someone else? Patient reports no desire to harm self or others. Onset of symptoms was September 18, 2019. 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 - Social history:: Smoking status: Patient reports the use of cigarette tobacco products, smokes one-half pack cigarettes per day. Screenin:20 Abuse screen: Denies threats or abuse. Nutritional screening: No deficits noted. rb1 Tuberculosis screening: No symptoms or risk factors identified. Fall Risk None identified. Assessment: 14:20 General: Appears uncomfortable, Behavior is calm, cooperative, Denies fever. Pain: rb1 Complains of pain in left low back, left lower abdomen Pain currently is 8 out of 10 on a pain scale. Pain began this morning. Neuro: Level of Consciousness is awake, alert, obeys commands, Oriented to person, place, time, situation. Cardiovascular: Capillary refill < 3 seconds is brisk in bilateral fingers. Respiratory: Airway is patent Respiratory effort is even, unlabored, Respiratory pattern is regular, symmetrical. GI: Reports nausea. : Reports pain with urination, Blood in urine. Pt. reports history of kidney stones. Derm: Skin is pink, warm \\T\\ dry. 15:20 Reassessment: Patient appears in no apparent distress at this time. No changes from rb1 previously documented assessment. 16:19 Reassessment: Patient appears in no apparent distress at this time. Patient and/or rb1 family updated on plan of care and expected duration. Pain level reassessed. Patient is alert, oriented x 3, equal unlabored respirations, skin warm/dry/pink. 17:15 Reassessment: Patient appears in no apparent distress at this time. No changes from rb1 previously documented assessment. Vital Signs: 14:09 BP 144 / 91; Pulse 93; Resp 17; Temp 97.2(TE); Pulse Ox 100% on R/A; Weight 81.65 kg ca1 (R); Height 5 ft. 9 in. (175.26 cm) (R); Pain 10/10; 15:55 BP 136 / 91; Pulse 75; Resp 15; Temp 97.8(O); Pulse Ox 99% on R/A; mh5 16:59 BP 125 / 84; Pulse 65; Resp 16; Pulse Ox 100% on R/A; mh5 17:45 BP 131 / 92; Pulse 67; Resp 15; Pulse Ox 100% ; rb1 14:09 Body Mass Index 26.58 (81.65 kg, 175.26 cm) ca1 ED Course: 13:57 Patient arrived in ED. ag5 14:10 Darryn Dawson PA is PHCP. cp 14:10 Nirmal Fatima MD is Attending Physician. cp 14:11 Triage completed. ca1 14:12 Arm band placed on right wrist. ca1 14:18 oRssy Atkinson, RN is Primary Nurse. rb1 14:20 Patient has correct armband on for positive identification. Placed in gown. Bed in low rb1 position. Call light in reach. Side rails up X 1. Pulse ox on. NIBP on. 15:00 CT Stone Protocol In Process Unspecified. EDMS 15:00 Inserted saline lock: 22 gauge in right antecubital area, using aseptic technique. rb1 ,using aseptic technique. IV inserted by MICHEL Kurtz. Blood collected. 17:25 Lizbeth Tavarez MD is Referral Physician. cp 17:46 No provider procedures requiring assistance completed. Patient did not have IV access rb1 during this emergency room visit. Administered Medications: 15:10 Drug: Zofran (Ondansetron) 4 mg Route: IVP; Site: right antecubital; rb1 15:25 Follow up: Response: No adverse reaction rb1 15:10 Drug: morphine 2 mg Route: IVP; Site: right antecubital; rb1 15:25 Follow up: Response: No adverse reaction; Pain is decreased rb1 Outcome: 17:26 Discharge ordered by MD. cp 17:46 Discharged to home ambulatory. rb1 17:46 Condition: stable rb1 17:46 Discharge instructions given to patient, Instructed on discharge instructions, follow up and referral plans. medication usage, Demonstrated understanding of instructions, follow-up care, medications, Prescriptions given X 3. 17:51 Patient left the ED. rb1 Signatures: Dispatcher [employer] EDMS Darryn Dawson PA PA cp Barber, Rebecca RN RN rb1 Savanna Thornton 5 Kianna Tapia RN RN ca1 Jyoti Mast ag5 Corrections: (The following items were deleted from the chart) 17:51 17:46 Discharged to home rb1 rb1
[2019-09-18 18:05] VITALS: TEMP 97.8
[2019-09-18 18:06] VITALS: O2SAT 100
[2019-09-18 18:08] VITALS: BP 131/92
== END 2019-09-18 17:51 | disposition home or self-care (01) ==
LOC: ER 13:53
DX: N20.0 Calculus of kidney (principal); F17.210 Nicotine dependence, cigarettes, uncomplicated; Z87.442 Personal history of urinary calculi
CPT/HCPCS: 36415; 74176; 76377; 80048; 80076; 81003; 81015; 81025; 83690; 85025; 96374; 96375; 99284; J2270; J2405

== ENCOUNTER 2021-03-11 19:50 | Emergency (ER) | payer SELFPAY | END 2021-03-11 20:23 | disposition left against medical advice (07) | LOC: ER 19:50 | DX: Z02.9 Encounter for administrative examinations, unspecified (principal) ==

== ENCOUNTER 2021-06-27 16:27 | Emergency (ER) | payer SELFPAY ==
--- OUTSIDE RECORDS SUMMARY | 2021-06-27 16:30 | XMS REPORT | Continuity of Care Document ---
:1985 Author Organization [facility]ly [facility] t Address [address] [place] [address] Care Team Providers Name Role Phone PCP, DOES NOT HAVE A Primary Care Physician Unavailable Kemi WILCOX Attending Clinician Unavailable Kemi WILCOX Admitting Clinician Unavailable Problems This patient has no known problems. Allergies, Adverse Reactions, Alerts Allergy Allergy Status Severity Reaction(s) Onset Inactive Treating Comm ents Source Name Type Date Date Clinician NO KNOWN Drug Active [facility] ALLERGIE Class [facility] Medications This patient has no known medications. Procedures This patient has no known procedures. Encounters Start End Encounter Admission Attending Care Care Encounter Source Date/Time Date/Time Type Type Clinicians Facility Department ID 2019-05-25 2019-05-25 Emergency X KARTHIKEYAN WILCOX ERT [id number] 13:11:28 15:51:00 [facility] Results This patient has no known results.
[2021-06-27 17:01] LABS: Urine Blood Negative (Negative); Urine Glucose Negative (Negative); Urine Protein Negative (Negative); Urine Specific Gravity >=1.030 (1.005-1.030); Urine pH 5.5 (5.0-7.0)
[2021-06-27 17:40] LABS: Absolute Lymphocytes (CBC) 2.3 K/uL (0.7-4.9); Hematocrit 39.4 % (36.0-45.0); Lymphocytes % 32.5 % (15.3-44.8); MPV 8.6 fL (7.6-11.3); RBC Red Blood Cell Count 4.77 M/uL (3.86-4.86)
[2021-06-27 17:50] LABS: ALT/SGPT 17 U/L (12-78); AST/SGOT 9 U/L (15-37); Albumin 3.4 g/dL (3.4-5.0); Alkaline Phosphatase 75 U/L (45-117); BUN Blood Urea Nitrogen 11 mg/dL (7-18); Bicarbonate 30 mmol/L (21-32); Bilirubin Direct < 0.1 mg/dL (0-0.2); Bilirubin Total 0.1 mg/dL (0.2-1.0); Glucose Level 78 mg/dL (74-106); Lipase 147 U/L (73-393); Potassium 3.8 mmol/L (3.5-5.1); Protein, Total 7.5 g/dL (6.4-8.2); Sodium Level 138 mmol/L (136-145)
[2021-06-27 17:52] LABS: Urine Specific Gravity/Preg >1.030 (1.005-1.030)
[2021-06-27 18:01] LABS: Urine Amorphous Sediment 1+ /HPF (NONE SEEN); Urine Bacteria <20 /HPF (<20); Urine Mucus 2+ /HPF (NONE SEEN); Urine RBC <5 /HPF (NONE SEEN)
--- NOTE | 2021-06-27 18:02 | RAD REPORT ---
EXAM DESCRIPTION: CT - Stone Protocol - 06/27/2021 5:55 pm CLINICAL HISTORY: Flank pain. FLANK PAIN COMPARISON: Stone Protocol dated 09/18/2019 TECHNIQUE: Axial images were obtained without oral or IV contrast. Lack of contrast limits solid org an and vascular assessment. The [id number]-[id number]-ptid spans the entirety of the system partially obscuring uppermost abdomen and lung bases. Coronal reformatted images were obtained and reviewed. All CT scans are performed using dose optimization technique as appropriate and may include automated exposure control or mA/KV adjustment according to patient size. FINDINGS: The lower lung horn are clear. Imaged portions of the liver and spleen show no suspicious findings on non-contrast imaging. The panc reas and adrenal glands are normal. No pathologic lymphadenopathy in the abdomen or pelvis. Small calculi are present in the calices of both kidneys without significant hydronephrosis. No bowel obstruction, free air, free fluid or abscess. Normal appendix noted. No significant bony abnormality. IMPRESSION: Multiple small calculi in the calices of both kidneys without hydronephrosis.
--- NOTE | 2021-06-27 19:35 | ER ---
Nurse's Notes [facility] Name: Melissa Hughes Age: 35 yrs Sex: Female : 1985 Arrival Date: 06/27/2021 Time: 16:32 Bed 9 Private MD: Diagnosis: Left flank pain;Low back pain Presentation: 06/27 16:43 Chief complaint: Patient states: left flank pain with dysuria for 2 days. Coronavirus iw screen: Vaccine status: Patient reports being unvaccinated. Ebola Screen: Patient negative for fever greater than or equal to 101.5 degrees Fahrenheit, and additional compatible Ebola Virus Disease symptoms Patient denies exposure to infectious person. Patient denies travel to an Ebola-affected area in the 21 days before illness onset. No symptoms or risks identified at this time. Initial Sepsis Screen: Does the patient meet any 2 criteria? No. Patient's initial sepsis screen is negative. Does the patient have a suspected source of infection? No. Patient's initial sepsis screen is negative. Risk Assessment: Do you want to hurt yourself or someone else? Patient reports no desire to harm self or others. Onset of symptoms was June 25, 2020. 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 - Social history:: Smoking status: Patient reports the use of cigarette tobacco products, smokes one-half pack cigarettes per day. Vital Signs: 16:43 BP 125 / 82; Pulse 101; Resp 18; Temp 97.8; Pulse Ox 100% ; Weight 99.79 kg; Height 5 iw ft. 11 in. (180.34 cm); Pain 8/10; 16:43 Body Mass Index 30.68 (99.79 kg, 180.34 cm) iw ED Course: 16:32 Patient arrived in ED. am2 16:46 Triage completed. iw 16:47 Arm band placed on right wrist. iw 17:10 Initial lab(s) drawn, by me, sent to lab. Inserted saline lock: 20 gauge in right kj1 antecubital area, using aseptic technique. Blood collected. 17:15 Kwesi Diaz NP is PHCP. pm1 17:15 Darryn Zacarias MD is Attending Physician. pm1 17:55 CT Stone Protocol In Process Unspecified. EDMS 20:03 Patient has correct armband on for positive identification. jl7 20:03 No provider procedures requiring assistance completed. IV discontinued, intact, jl7 bleeding controlled, No redness/swelling at site. Pressure dressing applied. Administered Medications: 20:03 Not Given (Patient Refused): NS 0.9% 1000 ml IV at 1000 ml once jl7 20:03 Not Given (Patient Refused): morphine 4 mg IVP once; RASS on ADMIN: Combtv4, Very jl7 Agttd3, Agttd2, Rstlss1, AlertClm0, Drwsy-1, Lt Sdtn-2, Mod Sdtn-3, Dp Sdtn-4, UnArsble-5 20:03 Not Given (Patient Refused): Zofran (Ondansetron) 4 mg IVP once; over 2 minutes jl7 20:03 Not Given (Patient Refused): Ketorolac 30 mg IVP once jl7 Outcome: 19:34 Discharge ordered by . pm1 20:03 Discharged to home ambulatory. jl7 20:03 Condition: stable 20:03 Discharge instructions given to patient, Instructed on discharge instructions, follow up and referral plans. medication usage, Demonstrated understanding of instructions, follow-up care, medications, Prescriptions given X 2. 20:04 Patient left the ED. jl7 Signatures: Dispatcher [employer] EDMI Luna Sauceda RN RN iw Kwesi Diaz NP [employer] pm1 Imani Anderson RN RN jl7 Dolly Vivar am2 Geovanna Conway kj1
--- NOTE | 2021-06-27 19:35 | EDPHYS ---
Physician Documentation [facility] Name: Melissa Hughes Age: 35 yrs Sex: Female : 1985 Arrival Date: 06/27/2021 Time: 16:32 Bed 9 Private MD: ARIN Physician Darryn Zacarias HPI: 06/27 17:19 This 35 yrs old Female presents to ER via Ambulatory with complaints of Flank Pain. pm1 17:19 The patient complains of pain in the left low back. The pain radiates to the left lower pm1 quadrant. Onset: The symptoms/episode began/occurred 3 day(s) ago. Modifying factors: The symptoms are alleviated by nothing. the symptoms are aggravated by nothing. Associated signs and symptoms: Pertinent negatives: diarrhea, fever, nausea, vomiting. Severity of pain: in the emergency department the pain is actually worse. The patient has experienced similar episodes in the past, a few times, today's symptoms are similar, to previous kidney stones. The patient has not recently seen a physician. 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 - Social history:: Smoking status: Patient reports the use of cigarette tobacco products, smokes one-half pack cigarettes per day. ROS: 17:19 Constitutional: Negative for fever, chills, and weight loss, Cardiovascular: Negative pm1 for chest pain, palpitations, and edema, Respiratory: Negative for shortness of breath, cough, wheezing, and pleuritic chest pain. 17:19 : Negative for injury, bleeding, discharge, and swelling, MS/Extremity: Negative for injury and deformity, Skin: Negative for injury, rash, and discoloration, Neuro: Negative for headache, weakness, numbness, tingling, and seizure. 17:19 Abdomen/GI: Positive for abdominal pain, of the left lower quadrant. 17:19 Back: Positive for flank pain, on the left, Negative for decreased range of motion, pain with movement. 17:19 All other systems are negative. Exam: 17:19 Constitutional: This is a well developed, well nourished patient who is awake, alert, pm1 and in no acute distress. Head/Face: Normocephalic, atraumatic. 17:19 Skin: Warm, dry with normal turgor. Normal color with no rashes, no lesions, and no evidence of cellulitis. MS/ Extremity: Pulses equal, no cyanosis. Neurovascular intact. Full, normal range of motion. 17:19 Eyes: Exam is negative for acute changes, Extraocular movements: intact throughout, Conjunctiva: no acute changes, no injection. 17:19 ENT: Exam is negative for acute changes, Mouth: no acute changes, Lips: normal, moist, Oral mucosa: normal, pink and intact, moist. 17:19 Cardiovascular: Exam negative for acute changes, Rate: normal, Rhythm: regular, Pulses: no pulse deficits are appreciated, Heart sounds: normal. 17:19 Respiratory: Exam negative for acute changes, respiratory distress, shortness of breath. 17:19 Abdomen/GI: Exam negative for acute changes, Inspection: abdomen appears normal, Palpation: abdomen is soft and non-tender, in all quadrants. 17:19 Back: Exam negative for acute changes, pain, that is mild, of the left low back. 17:19 Neuro: Exam negative for acute changes, Orientation: is normal, Mentation: is normal, Motor: is normal, moves all fours. Vital Signs: 16:43 BP 125 / 82; Pulse 101; Resp 18; Temp 97.8; Pulse Ox 100% ; Weight 99.79 kg; Height 5 iw ft. 11 in. (180.34 cm); Pain 8/10; 16:43 Body Mass Index 30.68 (99.79 kg, 180.34 cm) iw MDM: 17:26 Patient medically screened. pm1 19:32 Data reviewed: vital signs. Data interpreted: Pulse oximetry: on room air is 100 %. pm1 Interpretation: normal. 19:33 Counseling: I had a detailed discussion with the patient and/or guardian regarding: the pm1 historical points, exam findings, and any diagnostic results supporting the discharge/admit diagnosis, lab results, radiology results, the need for outpatient follow up, to return to the emergency department if symptoms worsen or persist or if there are any questions or concerns that arise at home. 19:49 ED course: PMPaware reviewed. pm1 06/27 17:01 Order name: Urine Dipstick-Ancillary; Complete Time: 17:26 EDMS 06/27 17:03 Order name: Urine --Ancillary (enter results); Complete Time: 18:14 bd 06/27 17:16 Order name: Basic Metabolic Panel; Complete Time: 18:14 pm1 06/27 17:16 Order name: CBC with Diff; Complete Time: 18:14 pm1 06/27 17:16 Order name: Hepatic Function; Complete Time: 18:14 pm1 06/27 17:16 Order name: Lipase; Complete Time: 18:14 pm1 06/27 17:16 Order name: IV Saline Lock; Complete Time: 17:45 pm1 06/27 17:16 Order name: Labs collected and sent; Complete Time: 17:45 pm1 06/27 17:16 Order name: Urine Microscopic Only; Complete Time: 18:14 pm1 06/27 17:16 Order name: CT Stone Protocol; Complete Time: 18:14 pm1 Administered Medications: 20:03 Not Given (Patient Refused): NS 0.9% 1000 ml IV at 1000 ml once jl7 20:03 Not Given (Patient Refused): morphine 4 mg IVP once; RASS on ADMIN: Combtv4, Very jl7 Agttd3, Agttd2, Rstlss1, AlertClm0, Drwsy-1, Lt Sdtn-2, Mod Sdtn-3, Dp Sdtn-4, UnArsble-5 20:03 Not Given (Patient Refused): Zofran (Ondansetron) 4 mg IVP once; over 2 minutes jl7 20:03 Not Given (Patient Refused): Ketorolac 30 mg IVP once jl7 Disposition: 06/28 08:47 Co-signature as Attending Physician, Darryn Zacarias MD I agree with the assessment and joy plan of care. Disposition Summary: 06/27/21 19:34 Discharge Ordered Location: Home pm1 Problem: new pm1 Symptoms: have improved pm1 Condition: Stable pm1 Diagnosis - Left flank pain pm1 - Low back pain pm1 Followup: pm1 - With: Emergency Department - When: As needed - Reason: Worsening of condition Followup: pm1 - With: Private Physician - When: 2 - 3 days - Reason: Recheck today's complaints, Continuance of care, Re-evaluation by your physician Discharge Instructions: - Discharge Summary Sheet pm1 - Flank Pain, Adult pm1 Forms: - Medication Reconciliation Form pm1 - Thank You Letter pm1 - Antibiotic Education pm1 - Prescription Opioid Use pm1 Prescriptions: - Cyclobenzaprine 10 mg Oral Tablet - take 1 tablet by ORAL route every 8 hours As needed; 30 tablet; Refills: 0, pm1 Product Selection Permitted - Tylenol-Codeine #3 300 mg-30 mg Oral - take 2 tablet by ORAL route every 6 hours As needed; 20 tablet; Refills: 0, pm1 Product Selection Permitted - Diclofenac Sodium 75 mg Oral tablet,delayed release (DR/EC) - take 1 tablet by ORAL route 2 times per day As needed; 30 tablet; Refills: 0, pm1 Product Selection Permitted Signatures: Dispatcher [employer] Darryn Shaw MD MD cha Williams, Irene, RN RN iw Kwesi Diaz, [facility] NURSE pm1 Imani Anderson RN jl7 Corrections: (The following items were deleted from the chart) 06/27 19:36 19:34 Unspecified renal colic pm1 pm1
[2021-06-27 20:12] VITALS: BP 125/82; TEMP 97.8; O2SAT 100
== END 2021-06-27 20:04 | disposition home or self-care (01) ==
LOC: ER 16:27
DX: R10.9 Unspecified abdominal pain (principal); M54.50 Low back pain, unspecified
CPT/HCPCS: 36415; 74176; 76377; 80048; 80076; 81003; 81015; 81025; 83690; 85025; 99284

== ENCOUNTER 2022-05-31 13:19 | Emergency (ER) | payer SELFPAY ==
--- NOTE | 2022-05-31 14:54 | RAD REPORT ---
EXAM DESCRIPTION: CT - Stone Protocol - 05/31/2022 2:24 pm CLINICAL HISTORY: flank pain COMPARISON: Stone Protocol dated 06/27/2021 TECHNIQUE: Axial 3 mm thick images were obtained without oral or IV contrast. The [id number]-[id number] span s the entirety of the system including uppermost abdomen and lung bases. All CT scans are performed using dose optimization technique as appropriate and may include automated exposure control or mA/KV adjustment according to patient size. FINDINGS: Mild right-sided hydronephrosis is present down to the UVJ level where there is a 4 millim eter calcification. Calcification may projecting into the lumen of the urinary bladder. Patient has n umerous 2-7 mm nonobstructing bilateral calyx calculi. No left-sided hydronephrosis. No suspicious re nal masses. Isodense masses and pyelonephritis are not excluded on a stone protocol CT scan. No signi ficant adrenal finding. Urinary bladder is mostly contracted. Imaged portions of the liver, spleen and pancreas show no suspicious findings on non-contrast imaging . No gallbladder or biliary tree abnormality identified. No suspicious bowel findings. Appendix is normal. No hernia, mass or bulky lymphadenopathy noted. No free air, free fluid or inflammatory stranding. No significant bony abnormality. IMPRESSION: Mild right-sided hydronephrosis secondary to 4 mm stone at the UVJ. Stone projects into the bladder lumen. Numerous bilateral nonobstructing calyx calculi. Isodense masses and pyelonephritis are not excluded on stone protocol technique.
[2022-05-31] MEDS ORDERED: NA CHLORIDE 0.9% 1,000 ML ONE (15:12)
[2022-05-31] MEDS ORDERED: KETOROLAC 30 MG/ML INJ ONE (15:12)
[2022-05-31 15:23] LABS: Urine Blood 3+ (Negative); Urine Glucose Negative (Negative); Urine Protein Negative (Negative)
[2022-05-31 15:33] LABS: Absolute Lymphocytes (CBC) 1.4 K/uL (0.7-4.9); Hematocrit 36.4 % (36.0-45.0); Lymphocytes % 21.8 % (15.3-44.8); MCV 82.6 fL (80-100); MPV 8.5 fL (7.6-11.3); RBC Red Blood Cell Count 4.41 M/uL (3.86-4.86)
[2022-05-31] MEDS ORDERED: TAMSULOSIN 0.4 MG SR CAP ONE (15:55)
[2022-05-31] MEDS ORDERED: MAGNESIUM SULFATE 1 gm IVPB 1 GM/100 ML BAG IV ONE (15:55)
[2022-05-31 15:58] LABS: Albumin 3.7 g/dL (3.4-5.0); Bilirubin Total 0.2 mg/dL (0.2-1.0); Magnesium 2.3 mg/dL (1.8-2.4); Potassium 3.9 mmol/L (3.5-5.1); Protein, Total 7.8 g/dL (6.4-8.2)
--- NOTE | 2022-05-31 16:54 | ER ---
Nurse's Notes [facility] Name: Melissa Hughes Age: 36 yrs Sex: Female : 1985 Arrival Date: 05/31/2022 Time: 13:21 Bed 11 Private MD: Diagnosis: Kidney Stone/ Calculus in urethra Presentation: 05/31 14:05 Chief complaint: Patient states: Right flank, RUQ and RLQ pain that began this morning vg1 with nausea and pressure upon urination. Coronavirus screen: Vaccine status: Patient reports being unvaccinated. Client denies travel out of the [place] in the last 14 days. Ebola Screen: Patient negative for fever greater than or equal to 101.5 degrees Fahrenheit, and additional compatible Ebola Virus Disease symptoms. Initial Sepsis Screen: Does the patient meet any 2 criteria? No. Patient's initial sepsis screen is negative. Does the patient have a suspected source of infection? No. Patient's initial sepsis screen is negative. Risk Assessment: Do you want to hurt yourself or someone else? Patient reports no desire to harm self or others. Onset of symptoms was May 31, 2022. 14:05 Method Of Arrival: Ambulatory vg1 14:05 Acuity: ABELARDO 3 vg1 Triage Assessment: 14:07 General: Appears uncomfortable, Behavior is calm, cooperative. Pain: Complains of pain vg1 in posterior aspect of right lateral abdomen, right upper quadrant and right lower quadrant Pain currently is 10 out of 10 on a pain scale. GI: Reports nausea. : Reports burning with urination. 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 - Social history:: Smoking status: Patient reports the use of cigarette tobacco products, smokes one-half pack cigarettes per day. Screenin:23 Abuse screen: Denies threats or abuse. Denies injuries from another. Nutritional ld1 screening: No deficits noted. Tuberculosis screening: No symptoms or risk factors identified. Fall Risk None identified. Assessment: 15:23 Reassessment: Patient and/or family updated on plan of care and expected duration. Pain ld1 level reassessed. Patient is alert, oriented x 3, equal unlabored respirations, skin warm/dry/pink. See triage assessment. 17:13 GI: Bowel sounds present X 4 quads. Abd is soft and non tender. ld1 Vital Signs: 14:05 BP 127 / 97; Pulse 89; Resp 15; Temp 97.9; Pulse Ox 100% ; Weight 81.65 kg; Height 5 vg1 ft. 9 in. (175.26 cm); Pain 10/10; 15:23 BP 122 / 86; Pulse 84; Resp 16; Pulse Ox 100% on R/A; Pain 6/10; ld1 16:27 BP 126 / 84; Pulse 80; Resp 16; Pulse Ox 100% on R/A; ld1 14:05 Body Mass Index 26.58 (81.65 kg, 175.26 cm) vg1 ED Course: 13:21 Patient arrived in ED. mr 14:07 Triage completed. vg1 14:07 Arm band placed on. vg1 14:09 Francia Gong PA-C is PHCP. sb4 14:09 Vinay Krishnan MD is Attending Physician. sb4 14:[address] In Process Unspecified. EDMS 15:04 Anisha Rosenthal, MICHEL is Primary Nurse. ld1 15:23 Patient has correct armband on for positive identification. Placed in gown. Bed in low ld1 position. Call light in reach. Side rails up X2. Pulse ox on. NIBP on. Door closed. Noise minimized. 15:23 No provider procedures requiring assistance completed. Inserted saline lock: 20 gauge ld1 in right antecubital area, using aseptic technique. Blood collected. 17:13 IV discontinued, intact, bleeding controlled, No redness/swelling at site. ld1 Administered Medications: 15:22 Drug: Ketorolac 15 mg Route: IVP; Site: right antecubital; ld1 17:47 Follow up: Response: No adverse reaction ld1 15:22 Drug: NS 0.9% 1000 ml Route: IV; Rate: 1 bolus; Site: right antecubital; ld1 17:46 Follow up: Response: No adverse reaction; IV Status: Completed infusion; IV Intake: ld1 1000ml 16:04 Drug: Flomax (tamsulosin) 0.4 mg Route: PO; ld1 17:46 Follow up: Response: No adverse reaction ld1 16:04 Drug: Magnesium Sulfate 1 grams Route: IVPB; Infused Over: 1 hrs; Site: right ld1 antecubital; 17:47 Follow up: Response: No adverse reaction; IV Status: Completed infusion; IV Intake: ld1 100ml Medication: 15:23 VIS not applicable for this client. ld1 Intake: 17:46 IV: 1000ml; Total: 1000ml. ld1 17:47 IV: 100ml; Total: 1100ml. ld1 Outcome: 16:54 Discharge ordered by MD. sb4 17:13 Discharged to home ambulatory, with family. ld1 17:13 Condition: stable 17:13 Discharge instructions given to patient, family, Instructed on discharge instructions, follow up and referral plans. medication usage, Demonstrated understanding of instructions, follow-up care, medications, Prescriptions given X 2. 17:13 Patient left the ED. ld1 Signatures: Dispatcher [employer] Madina Herrera Victoria, RN RN vg1 Anisha Rosenthal RN RN ld1 Francia Gong, PA-C PA-C sb4
--- NOTE | 2022-05-31 16:54 | EDPHYS ---
Physician Documentation [facility] Name: Melissa Hughes Age: 36 yrs Sex: Female : 1985 Arrival Date: 05/31/2022 Time: 13:21 Bed 11 Private MD: ED Physician Vinay Krishnan HPI: 05/31 14:13 This 36 yrs old Female presents to ER via Ambulatory with complaints of Abdominal Pain, sb4 Pelvic Pain. 14:13 The patient presents with abdominal pain right lower quadrant. Onset: The sb4 symptoms/episode began/occurred this morning. The symptoms radiate to the right flank. Associated signs and symptoms: Pertinent positives: dysuria, Pertinent negatives: nausea, vomiting, and diarrhea, fever. The symptoms are described as waxing/waning. Modifying factors: The symptoms are alleviated by nothing. Severity of pain: At its worst the pain was mild. The patient has experienced similar episodes in the past, a few times. Patient reports RLQ pain that radiates to right flank. Reports history of kidney stones. States this feels similar. Pain began just this morning. Reports dysuria as well.. 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 - Social history:: Smoking status: Patient reports the use of cigarette tobacco products, smokes one-half pack cigarettes per day. ROS: 14:13 Constitutional: Negative for fever, chills, and weight loss, Eyes: Negative for injury, sb4 pain, redness, and discharge, ENT: Negative for injury, pain, and discharge, Cardiovascular: Negative for chest pain, palpitations, and edema, Respiratory: Negative for shortness of breath, cough, wheezing, and pleuritic chest pain, Skin: Negative for injury, rash, and discoloration, Neuro: Negative for headache, weakness, numbness, tingling, and seizure. 14:13 Abdomen/GI: Positive for abdominal pain, Negative for nausea, vomiting, and diarrhea. 14:13 : Positive for flank pain, burning with urination. Exam: 14:13 Constitutional: This is a well developed, well nourished patient who is awake, alert, sb4 and in no acute distress. Head/Face: Normocephalic, atraumatic. ENT: Mucous membranes moist. Chest/axilla: Normal chest wall appearance and motion. Nontender with no deformity. No lesions are appreciated. Cardiovascular: Regular rate and rhythm with a normal S1 and S2. Respiratory: Lungs have equal breath sounds bilaterally, clear to auscultation and percussion. No rales, rhonchi or wheezes noted. No increased work of breathing, no retractions or nasal flaring. Abdomen/GI: Soft, non-tender, no distension. Skin: Warm, dry with normal turgor. Normal color with no rashes, no lesions, and no evidence of cellulitis. MS/ Extremity: Pulses equal, no cyanosis. Neurovascular intact. Full, normal range of motion. 14:13 : CVA tenderness, on the right. Vital Signs: 14:05 BP 127 / 97; Pulse 89; Resp 15; Temp 97.9; Pulse Ox 100% ; Weight 81.65 kg; Height 5 vg1 ft. 9 in. (175.26 cm); Pain 10/10; 15:23 BP 122 / 86; Pulse 84; Resp 16; Pulse Ox 100% on R/A; Pain 6/10; ld1 16:27 BP 126 / 84; Pulse 80; Resp 16; Pulse Ox 100% on R/A; ld1 14:05 Body Mass Index 26.58 (81.65 kg, 175.26 cm) vg1 MDM: 14:09 Patient medically screened. sb4 16:53 Data reviewed: vital signs, nurses notes, lab test result(s), radiologic studies, and sb4 as a result, I will discharge patient. 05/31 14:13 Order name: CBC with Diff; Complete Time: 15:35 sb4 05/31 14:13 Order name: CMP; Complete Time: 15:58 sb4 05/31 14:13 Order name: Lipase; Complete Time: 15:58 sb4 05/31 14:13 Order name: Magnesium; Complete Time: 15:58 sb4 05/31 15:23 Order name: Urine Dipstick-Ancillary; Complete Time: 15:29 EDMS 05/31 15:28 Order name: Urine --Ancillary (enter results); Complete Time: 15:37 bd 05/31 14:13 Order name: IV Start; Complete Time: 15:22 sb4 05/31 14:13 Order name: Urine Dipstick-Ancillary (obtain specimen); Complete Time: 15:22 sb4 05/31 14:13 Order name: Stone Protocol CT; Complete Time: 14:55 sb4 Administered Medications: 15:22 Drug: Ketorolac 15 mg Route: IVP; Site: right antecubital; ld1 17:47 Follow up: Response: No adverse reaction ld1 15:22 Drug: NS 0.9% 1000 ml Route: IV; Rate: 1 bolus; Site: right antecubital; ld1 17:46 Follow up: Response: No adverse reaction; IV Status: Completed infusion; IV Intake: ld1 1000ml 16:04 Drug: Flomax (tamsulosin) 0.4 mg Route: PO; ld1 17:46 Follow up: Response: No adverse reaction ld1 16:04 Drug: Magnesium Sulfate 1 grams Route: IVPB; Infused Over: 1 hrs; Site: right ld1 antecubital; 17:47 Follow up: Response: No adverse reaction; IV Status: Completed infusion; IV Intake: ld1 100ml Disposition: 18:49 Co-signature as Attending Physician, Vinay Krishnan MD. rn Disposition Summary: 05/31/22 16:54 Discharge Ordered Location: Home sb4 Problem: new sb4 Symptoms: have improved sb4 Condition: Stable sb4 Diagnosis - Kidney Stone/ Calculus in urethra sb4 Followup: sb4 - With: Private Physician - When: 2 - 3 days - Reason: Recheck today's complaints, Continuance of care, Re-evaluation by your physician Discharge Instructions: - Discharge Summary Sheet sb4 Forms: - Medication Reconciliation Form sb4 - Thank You Letter sb4 - Antibiotic Education sb4 - Prescription Opioid Use sb4 Prescriptions: - Flomax 0.4 mg Oral capsule - take 1 capsule by ORAL route once daily every morning with food; 10 capsule; sb4 Refills: 0, Product Selection Permitted - ketorolac 10 mg Oral tablet - take 1 tablet by ORAL route every 6 hours As needed not to exceed 40 mg in sb4 24hrs; 12 tablet; Refills: 0, Product Selection Permitted Signatures: Dispatcher [employer] Vinay Lynne MD MD rn Garcia, Victoria, RN RN [facility] Anisha Rosenthal, RN RN ld1 Francia Gong, BRENDAN CARDONA sb4
[2022-05-31 21:09] VITALS: TEMP 97.9; O2SAT 100
[2022-05-31 21:19] VITALS: BP 126/84
== END 2022-05-31 17:13 | disposition home or self-care (01) ==
LOC: ER 13:19
DX: N20.0 Calculus of kidney (principal); N21.1 Calculus in urethra; F17.210 Nicotine dependence, cigarettes, uncomplicated; Z87.442 Personal history of urinary calculi
CPT/HCPCS: 36415; 74176; 76377; 80053; 81003; 81025; 83690; 83735; 85025; J3475; J7030

== ENCOUNTER 2024-06-12 07:39 | Emergency (ER) | payer OTHER, SELFPAY ==
[2024-06-12] MEDS ORDERED: ONDANSETRON 4 MG/2 ML VIAL ONE (08:00)
[2024-06-12] MEDS ORDERED: MORPHINE 4 MG/ML SYR ONE (08:00)
[2024-06-12] MEDS ORDERED: NA CHLORIDE 0.9% 1,000 ML ONE (08:01)
[2024-06-12 08:18] LABS: Absolute Basophils 0.1 K/uL (0-0.5); Absolute Eosinophils 0.2 K/uL (0-0.5); Absolute Lymphocytes (CBC) 2.6 K/uL (0.7-4.9); Absolute Monocytes 0.8 K/uL (0.1-1.3); Absolute Neutrophil 4.7 K/uL (1.8-8.0); Basophils % 0.7 % (0-1.3); Eosinophils % 2.6 % (0-4.4); Hematocrit 42.7 % (36.0-45.0); Hemoglobin 13.7 g/dL (12.0-15.0); Lymphocytes % 30.6 % (15.3-44.8); MCH 27.5 pg (27.0-35.0); MCV 85.9 fL (80-100); MPV 8.8 fL (7.6-11.3); Neutrophils % 56.1 % (41.7-73.7); Nucleated Red Blood Cells % 0.1 % (0-0); Platelets 295 thou/uL (152-406); RBC Red Blood Cell Count 4.97 M/uL (3.86-4.86); Red Cell Distribution Width 14.5 % (12.1-15.2)
[2024-06-12 08:32] LABS: Albumin 3.6 g/dL (3.4-5.0); Albumin/Globulin Ratio 0.8 (1.1-1.8); Bilirubin Total 0.2 mg/dL (0.2-1.0); Globulin 4.3 g/dL (2.3-3.5); Protein, Total 7.9 g/dL (6.4-8.2)
--- NOTE | 2024-06-12 08:53 | RAD REPORT ---
EXAMINATION: CT ABDOMEN AND PELVIS WITH CONTRAST CLINICAL INDICATION: ABD PAIN TECHNIQUE: CT abdomen and pelvis was performed, after the administration of IV contrast, as per [facility] protocol. Axial, sagittal and coronal reconstructions were obtained. One or more of the following dose reduction techniques were used: Automated exposure control, adjustment of the mA and k V according to patient size, and iterative reconstruction. Unless otherwise specified, incidental findings do not require dedicated imaging follow-up. COMPARISON: 05/31/2022 FINDINGS: LOWER CHEST: The visualized lung bases are clear. LIVER: Normal in size and contour. No focal lesion. Grossly unremarkable gallbladder. SPLEEN: Normal size. No focal lesion. PANCREAS: No mass, ductal dilation, or ho-pancreatic fluid. ADRENALS: Normal; no mass. KIDNEYS: Multiple small calculi are present in both kidneys calyces. 4 mm calculus is present in the dependent portion of the urinary bladder, likely recently passed from the right. Mild residual right-sided hydronephrosis. GASTROINTESTINAL TRACT: No evidence of free air, significant intra-abdominal free fluid, bowel obstru ction or abscess. APPENDIX: Normal appendix. LYMPH NODES: No lymphadenopathy. MUSCULOSKELETAL: No acute or suspicious osseous abnormality. ADDITIONAL FINDINGS: None. IMPRESSION: Multiple bilateral calyceal stones are present. 4 mm calculus in the bladder probably recently passed right-sided urinary tract stone. Mild residual right hydronephrosis.
[2024-06-12 09:20] LABS: Specific Gravity > 1.030 (1.005-1.030); Sqamous Epithelial <5 /HPF (None Seen); Transitional Epithelial <5 /HPF (None Seen); Urine Bacteria <20 /HPF (<20); Urine Bilirubin NEGATIVE (Negative); Urine Blood 3+ (Negative); Urine Clarity Turbid (Clear); Urine Color Light-Yellow (Yellow); Urine Culture Reflex Order NOT NEEDED; Urine Glucose NEGATIVE (Negative); Urine Ketones NEGATIVE (Negative); Urine Micro Reflex YN NO BILL MICROSCOPIC; Urine Mucus Slight /HPF (None Seen); Urine Nitrite NEGATIVE (Negative); Urine Protein NEGATIVE (Negative); Urine RBC >50 /HPF (None Seen); Urine Urobilinogen Normal (Normal)
--- NOTE | 2024-06-12 09:24 | EDPHYS ---
Physician Documentation [facility] Name: Melissa Hughes Age: 38 yrs Sex: Female : 1985 Arrival Date: 06/12/2024 Time: 07:39 Bed 19 Private MD: ED Physician Alhaji Chan HPI: 06/12 07:48 This 38 yrs old Female presents to ER via Unassigned with complaints of ec2 Abdominal Pain, Vomiting. 07:48 Patient arrives today for evaluation of right-sided abdominal pain. Patient reports ec2 onset approximately 20 minutes prior to arrival. Reports associated nausea. Patient reports history of tubal ligation. Reports no urinary complaints. Reports no cough or cold symptoms. Patient reports otherwise no significant medical problems.. Historical: - Allergies: 07:55 No Known Drug Allergies; hb - PMHx: 07:55 Kidney stones; hb - PSHx: 07:55 Ligation of fallopian tube; hb - Immunization history:: Adult Immunizations up to date. - Infectious Disease History:: Denies. - Social history:: Smoking status: Patient reports the use of cigarette tobacco products, smokes one-half pack cigarettes per day. ROS: 07:48 Constitutional: as per hpi ec2 Exam: 07:48 Constitutional: GEN: NAD Head: atraumatic Eyes: EOMI Ears: External ears are ec2 normal. CV: regular rate LUNGS: no respiratory distress ABD: non-distended, soft, tender in the right abdomen, not guarding, not rigid SKIN: no evidence of rashes MSK: no evidence of trauma Vital Signs: 07:54 BP 154 / 96; Pulse 90; Resp 18; Temp 98.2(O); Pulse Ox 96% on R/A; Weight 95.25 kg; hb Height 5 ft. 11 in. ; Pain 10/10; 08:59 BP 135 / 47; Pulse 77; Resp 16; Pulse Ox 100% ; bp 09:51 BP 125 / 43; Pulse 88; Resp 15; Pulse Ox 100% ; bp 07:54 Body Mass Index 29.29 (95.25 kg, 180.34 cm) hb 07:54 Pain Scale: Adult hb MDM: 07:48 Data reviewed: vital signs, nurses notes. ED course: Patient arrives today for ec2 evaluation of right-sided abdominal pain. Examination is revealing for abdominal findings above. Will obtain lab work, CT imaging and treat the patient's pain and nausea. Differential diagnosis include processes such as appendicitis, diverticulitis, cholecystitis, cholelithiasis. 07:48 Medical Screening Exam initiated ec2 08:55 ED course: CT abdomen pelvis shows recently passed right-sided ureteral stone at 4 mm ec2 in size within the bladder. Some mild right hydronephrosis, pending urine studies. 09:23 ED course: Urine noninfectious, does show blood present consistent with patient's ec2 stone. Will discharge home. Return precautions given.. 06/12 07:47 Order name: UAM; Complete Time: 09:23 ec2 06/12 07:47 Order name: Test, Urine; Complete Time: 09:23 ec2 06/12 07:47 Order name: CBC with Diff; Complete Time: 08:54 ec2 06/12 07:47 Order name: CMP; Complete Time: 08:54 ec2 06/12 07:47 Order name: Lipase; Complete Time: 08:54 ec2 06/12 07:47 Order name: CT Abd/Pelvis - IV Contrast Only; Complete Time: 08:54 ec2 06/12 07:47 Order name: IV Saline Lock; Complete Time: 08:11 ec2 06/12 07:47 Order name: Labs collected and sent; Complete Time: 08:11 ec2 Administered Medications: 08:11 Drug: Ondansetron IVP 4 mg IVP once; over 2 minutes Route: IVP; Site: right antecubital;bp 09:52 Follow up: Response: No adverse reaction bp 08:11 Drug: morphine IVP or IV 4 mg IVP once over 4 mins Route: IVP; Infused Over: 4 mins; bp Site: right antecubital; 09:52 Follow up: Response: No adverse reaction bp 08:11 Drug: NS 0.9% IV 1000 ml IV at 1 bolus Per protocol; to be given as a bolus over 60 bp minutes Route: IV; Rate: 1 bolus; Site: right antecubital; 09:52 Follow up: IV Status: Completed infusion bp Disposition Summary: 06/12/24 09:23 Discharge Ordered Notes: Location: Home ec2 Condition: Stable ec2 Diagnosis - Kidney Stone/ Calculus in bladder ec2 Followup: ec2 - With: Private Physician - When: - Reason: Re-evaluation by your physician Discharge Instructions: - Discharge Summary Sheet ec2 - Kidney Stones, Vgun-pt-Valk ec2 Forms: - Medication Reconciliation Form ec2 - Antibiotic Education ec2 - Prescription Opioid Use ec2 - Patient Portal Instructions ec2 - Leadership Thank You Letter ec2 Prescriptions: - acetaminophen-codeine 300-30 mg Oral tablet - take 1 tablet ORAL route every 4 hours as needed for pain; 10 tablet; Refills: ec2 0, Product Selection Permitted Signatures: Dispatcher [employer] Fide Thomas, MICHEL RN Ramsey Briggs, MICHEL RN bp Alhaji Chan MD MD ec2 Corrections: (The following items were deleted from the chart) 07:47 07:47 Urinalysis W/Microscopic+U.LAB.BRZ ordered. EDMS EDMS 07:47 07:47 Test, Urine+UC.LAB.BRZ ordered. EDMS EDMS 07:47 07:47 CBC+H.LAB.BRZ ordered. EDMS EDMS 07:47 07:47 COMPREHENSIVE METABOLIC PANEL+C.LAB.BRZ ordered. EDMS EDMS 07:47 07:47 LIPASE+C.LAB.BRZ ordered. EDMS EDMS 07:47 07:47 Abdomen Pelvis W Con+CT.RAD.BRZ ordered. EDMS EDMS 08:54 07:48 ED course: Patient arrives today for evaluation of right-sided abdominal pain. ec2 Examination is revealing for abdominal findings above. Will obtain lab work, CT imaging and treat the patient's pain and nausea.. ec2
--- NOTE | 2024-06-12 09:24 | ER ---
Nurse's Notes [facility] Name: Melissa Hughes Age: 38 yrs Sex: Female : 1985 Arrival Date: 06/12/2024 Time: 07:39 Bed 19 [facility] MD: Diagnosis: Kidney Stone/ Calculus in bladder Presentation: 06/12 07:54 Chief complaint: Severe right sided abdominal pain and N/V that started 30 mins ago. hb Coronavirus screen: At this time, the client does not indicate any symptoms associated with coronavirus-19. Ebola Screen: No symptoms or risks identified at this time. Initial Sepsis Screen: Does the patient meet any 2 criteria? No. Patient's initial sepsis screen is negative. Does the patient have a suspected source of infection? No. Patient's initial sepsis screen is negative. Risk Assessment: Do you want to hurt yourself or someone else? Patient reports no desire to harm self or others. Onset of symptoms was June 12, 2024. 07:54 Method Of Arrival: Ambulatory 07:54 Acuity: ABELARDO 3 hb Triage Assessment: 08:00 General: Appears distressed, uncomfortable, unkempt, Behavior is cooperative, bp appropriate for age, anxious. Pain: Complains of pain in abdomen. EENT: No deficits noted. Neuro: No deficits noted. Cardiovascular: No deficits noted. Respiratory: No deficits noted. GI: Reports lower abdominal pain, nausea, vomiting. : No signs and/or symptoms were reported regarding the genitourinary system. Derm: No deficits noted. Musculoskeletal: No deficits noted. Historical: - Allergies: 07:55 No Known Drug Allergies; hb - PMHx: 07:55 Kidney stones; hb - PSHx: 07:55 Ligation of fallopian tube; hb - Immunization history:: Adult Immunizations up to date. - Infectious Disease History:: Denies. - Social history:: Smoking status: Patient reports the use of cigarette tobacco products, smokes one-half pack cigarettes per day. Screenin:00 [facility] ED Fall Risk Assessment (Adult) History of falling in the last 3 months, bp including since admission No falls in past 3 months (0 pts) Confusion or Disorientation No (0 pts) Intoxicated or Sedated No (0 pts) Impaired Gait No (0 pts) Mobility Assist Device Used No (0 pt) Altered Elimination No (0 pt) Score/Fall Risk Level 0 - 2 = Low Risk Oriented to surroundings. Abuse screen: Denies threats or abuse. Denies injuries from another. Nutritional screening: No deficits noted. Tuberculosis screening: No symptoms or risk factors identified. Assessment: 08:00 General: Appears distressed, uncomfortable, obese, unkempt, Behavior is cooperative, bp appropriate for age, anxious. 09:00 Reassessment: Patient appears in no apparent distress at this time. Patient is alert, bp oriented x 3, equal unlabored respirations, skin warm/dry/pink. Vital Signs: 07:54 BP 154 / 96; Pulse 90; Resp 18; Temp 98.2(O); Pulse Ox 96% on R/A; Weight 95.25 kg; hb Height 5 ft. 11 in. ; Pain 10/10; 08:59 BP 135 / 47; Pulse 77; Resp 16; Pulse Ox 100% ; bp 09:51 BP 125 / 43; Pulse 88; Resp 15; Pulse Ox 100% ; bp 07:54 Body Mass Index 29.29 (95.25 kg, 180.34 cm) hb 07:54 Pain Scale: Adult hb ED Course: 07:41 Patient arrived in ED. im 07:42 Alhaji Chan MD is Attending Physician. ec2 07:55 Triage completed. hb 07:55 Arm band placed on. hb 08:00 Patient has correct armband on for positive identification. bp 08:11 Ramsey Briggs, RN is Primary Nurse. bp 08:11 Initial lab(s) drawn, by in, sent to lab. Inserted saline lock: 20 gauge in right bp antecubital area, using aseptic technique. Blood collected. Flushed with 10 mL NS. 08:42 CT Abd/Pelvis - IV Contrast Only In Process Unspecified. EDMS 09:51 No provider procedures requiring assistance completed. IV discontinued, intact, bp bleeding controlled, No redness/swelling at site. Pressure dressing applied. Administered Medications: 08:11 Drug: Ondansetron IVP 4 mg IVP once; over 2 minutes Route: IVP; Site: right antecubital;bp 09:52 Follow up: Response: No adverse reaction bp 08:11 Drug: morphine IVP or IV 4 mg IVP once over 4 mins Route: IVP; Infused Over: 4 mins; bp Site: right antecubital; 09:52 Follow up: Response: No adverse reaction bp 08:11 Drug: NS 0.9% IV 1000 ml IV at 1 bolus Per protocol; to be given as a bolus over 60 bp minutes Route: IV; Rate: 1 bolus; Site: right antecubital; Follow up: IV Status: Completed infusion bp Medication: 08:00 VIS not applicable for this client. bp Outcome: 09:23 Discharge ordered by MD. [email or web address] 09:51 Discharged to home ambulatory, bp :51 Condition: stable 09:51 Discharge instructions given to patient, Instructed on discharge instructions, follow up and referral plans. medication usage, Demonstrated understanding of instructions, follow-up care, medications, Prescriptions given X 1, :53 Patient left the ED. bp Signatures: Dispatcher [employer] EDFide Kate, RN RN Ramsey Orozco RN RN bp Angela Herrera Edwin, MD MD ec2
[2024-06-12 10:14] VITALS: TEMP 98.2
[2024-06-12 10:16] VITALS: O2SAT 100
[2024-06-12 10:17] VITALS: BP 125/43
== END 2024-06-12 09:53 | disposition home or self-care (01) ==
LOC: ER 07:39
DX: N20.0 Calculus of kidney (principal); N21.0 Calculus in bladder; F17.210 Nicotine dependence, cigarettes, uncomplicated
CPT/HCPCS: 36415; 74177; 80053; 81001; 81025; 83690; 85025; 96361; 96374; 96375; 99284; J2405; J7030; Q9967